=== PATIENT | male | born 1940 | race Caucasian/White ===

== ENCOUNTER → 2017-01-17 | Outpatient (CLI) | payer MEDICARE, BC ==
[~2017-01-17] MED LIST: BP MED; CENTRUM1 TA1 PO; CHOLESTEROL MED; ECOTRIN325 MG PO; FISH OIL CONC1000 MG PO; FLEXERIL10 MG PO; HEALTH CARE AM600 MG PO; LEVOTHYROXIN0.075 M1 PO; STERAPRED DS10 MG PO; ULTRAM50 MG PO; VITAMIN C500 MG PO
--- NOTE | 2017-01-17 13:42 | RADIOLOGY REPORT PS360 ---
ANKLE-LT-3 VIEWS HISTORY: Left ankle pain INJURY, LT FOOT/ANKLE PAIN ORDERING PHYSICIAN: Karel Henry MD PATIENT AGE: 76 years COMPARISON: None FINDINGS: No fracture or dislocation. No lytic or blastic change. There is normal mineralization.. The joint spaces are well-preserved. No significant degenerative/arthritic changes. No erosive changes evident. IMPRESSION: Negative ankle, no acute finding
--- NOTE | 2017-01-17 13:44 | RADIOLOGY REPORT PS360 ---
FOOT-LT-3 VIEWS HISTORY: Left foot pain INJURY, LT FOOT/ANKLE PAIN ORDERING PHYSICIAN: Karel Henry MD PATIENT AGE: 76 years COMPARISON: None FINDINGS: No definite fracture or dislocation. There is mild flexion deformity of digits 3 and 4. An additional density is noted over the mid aspect of the distal phalanx of the great toe and may be due to summation artifact from the overlying toenail. Please correlate clinically. A nondisplaced fracture could have a similar appearance. IMPRESSION: No definite acute finding. Please see above for detail
== END ==
LOC: RAD 08:55
DX: S99.922D Unspecified injury of left foot, subsequent encounter (principal)